=== PATIENT | female | born 1980 | race Two or more races ===

== ENCOUNTER 2023-06-20 23:42 | Emergency (ER) | payer MEDICAID, OTHER ==
[~2023-06-20] VITALS: Ht 157.5 cm; Wt 61.4 kg
[2023-06-21] MEDS ORDERED: CEPH500C PO (01:53)
[2023-06-21] MEDS ORDERED: KETOROLAC TROMETH 30 MG/ML 1ML VIAL IM ONE (02:00)
[2023-06-21 02:40] VITALS: BP 122/74; PULSE 78; RESP 19; TEMP 97.9; O2SAT 98
== END 2023-06-21 02:40 | disposition home or self-care (01) ==
LOC: ER 23:42
DX: H02.842 Edema of right lower eyelid (principal); Z98.51 Tubal ligation status
CPT/HCPCS: 70450; 70486; 96372; 99285; J1885

== ENCOUNTER 2023-07-15 18:27 | Emergency (ER) | payer MEDICAID ==
[~2023-07-15] VITALS: Ht 157.5 cm; Wt 59.8 kg
[~2023-07-15 18:27] MED LIST: CEPH500C PO
[2023-07-15 23:40] VITALS: BP 127/70; PULSE 89; RESP 16; TEMP 98.2; O2SAT 98
[2023-07-15] MEDS ORDERED: IBUP-1455 PO (23:48)
== END 2023-07-16 00:01 | disposition home or self-care (01) ==
LOC: ER 18:27
DX: H00.012 Hordeolum externum right lower eyelid (principal); Z98.891 History of uterine scar from previous surgery

== ENCOUNTER 2024-06-14 07:37 | Emergency (ER) | payer MEDICAID ==
[~2024-06-14] VITALS: Ht 157.5 cm; Wt 58.4 kg
[~2024-06-14 07:37] MED LIST changes: +IBUP-1455 PO
[2024-06-14 08:06] LABS: Urine Bacteria MANY /hpf (None Seen); Urine Blood Negative /uL (Negative); Urine Clarity Clear (Clear); Urine Protein, UAD Negative (Negative); Urine Specific Gravity 1.039 (1.001-1.035); Urine Urobilinogen Normal (Negative); Urine WBC 1 /hpf (0 - 5); Urine pH 5.5 (5.0-9.0)
[2024-06-14 08:08] VITALS: BP 135/86; PULSE 84; RESP 16; TEMP 98.1; O2SAT 98
[2024-06-14 08:11] LABS: Urine Color STRAW (Yellow)
[2024-06-14] MEDS: SODIUM CHLORIDE 0.9% 1,000 ML IV ONE (08:55)
[2024-06-14] MEDS: InsuLIN REG 1unit/0.01ml Soln (100units/ml) SC ONE (08:56)
[2024-06-14] MEDS ORDERED: METF-1145 PO (09:56)
[2024-06-14] MEDS ORDERED: NAPR-746 PO (09:56)
== END 2024-06-14 10:06 | disposition home or self-care (01) ==
LOC: ER 07:37
DX: M54.31 Sciatica, right side (principal); R73.9 Hyperglycemia, unspecified; Z79.1 Long term (current) use of non-steroidal anti-inflammatories (NSAID); Z98.51 Tubal ligation status
CPT/HCPCS: 81001; 96360; 96372; 99283; J1815; J7030